=== PATIENT | female | born 1960 | race Caucasian/White ===

== ENCOUNTER 2017-07-04 15:33 | Inpatient (IN) | payer MEDICARE ==
[~2017-07-04] VITALS: Ht 177.8 cm; Wt 121.0 kg
--- NOTE | ~2017-07-04 | HP ---
PATIENT'S NAME: AKILAH MALIK [facility] AGE: 56 Y [address] ROOM: [place] [address] LOCATION: GICU ADMIT DATE: 07/04/2017 History & Physical DISCHARGE DATE: FAMILY PHYSICIAN: PHYSICIAN, UNKNOWN ATTENDING PHYSICIAN: JESSICA SERNA DATE OF SERVICE: CHIEF COMPLAINT: Acute encephalopathy, catatonia. HISTORY OF PRESENT ILLNESS: This is a 56-year-old female, transferred here from [facility] for evaluation of acute encephalopathy. The patient is known to have history of extensive psychiatric illnesses on multiple antipsychotic medications and presented to the emergency room yesterday lethargic with altered mental status. The patient apparently was admitted to their facility three days prior to her presentation last night and was hospitalized for 2 days for management of acute gastroenteritis type symptom. The patient was discharged on Tuesday morning, feeling well, but the very next day she was noted to be more and more lethargic, appearing to be how she looks right now. During my evaluation today, the patient is not following my command, blinks her eyes a few times, but other than that does not move any of her extremities. They did have a CT of her head done, which was negative and appears that this is related to side-effect from her psych medications and I think that could be despite her known noncompliance from her medications, she might have gotten more from medications regularly during her hospitalization, which is quite a few in number which might have cause the side-effect. The patient is hemodynamically stable, afebrile, and resting in bed with minimal responses. PAST MEDICAL HISTORY: 1. Bipolar disorder. 2. Schizophrenia. 3. Depression. 4. Hypertension. 5. COPD. SOCIAL HISTORY: The patient lives at home with . She have significant smoking history, but apparently quit about a week ago. Denies any alcohol or drug use. FAMILY HISTORY: The patient has a history of heart disease in her dad. REVIEW OF SYSTEMS: PATIENT'S NAME: AKILAH MALIK [facility] AGE: 56 Y [address] ROOM: [place] [address] LOCATION: GICU ADMIT DATE: 07/04/2017 History & Physical DISCHARGE DATE: FAMILY PHYSICIAN: PHYSICIAN, UNKNOWN ATTENDING PHYSICIAN: JESSICA SERNA Not able to conduct a full review of systems due to the patient's mental status. PHYSICAL EXAMINATION: VITAL SIGNS: Afebrile. Heart rate 90s, blood pressure 170/90, respiratory rate 18, saturating 100% on room air. GENERAL: The patient is awake, alert, and oriented x1, blinks eyes to sternal rub, but otherwise does not follow command at all. HEENT: Pupils equal and reactive to light. No scleral icterus, conjunctival pallor noted. CHEST: Clear to auscultation bilaterally. HEART: S1 and S2. Regular rate and rhythm. ABDOMEN: Soft, nontender, and nondistended. EXTREMITIES: Without edema. MUSCULOSKELETAL: No joint effusion, redness, or edema noted. NEURO: The patient unresponsive except for sternal rub, but no obvious focal neurological deficits appreciated. SKIN: Without rash or lesions noted. ASSESSMENT AND PLAN: 1. Catatonia. This appears to be related to side-effects of her multiple psychiatric medications including Invega, Seroquel, trazodone, bupropion, amitriptyline in combination or any of these can cause this. At this point, we will hold all antipsychotic medications and treat this as catatonia with Lorazepam 1 mg IV q.6 hours and monitor progress. We will transfer the patient to ICU level of care. I spoke to the psychiatrist, Dr. Cage and he is coming to see the patient as well in the acute setting and her medications going forward. 2. Acute encephalopathy related to problem #1. Management as described above. 3. Schizophrenia. Management as above. 4. Essential hypertension. Hold p.o. medications until her mental status improves and manage with IV medications for as needed. 5. Morbid obesity. 6. Tobacco dependence. 7. Chronic obstructive pulmonary disease. Continue her p.r.n. nebulizer treatments as needed. 8. Deep vein thrombosis prophylaxis. Use heparin 5000 units t.i.d. Forty five minutes of critical time spent for managing the patient. JESSICA SERNA MD PATIENT'S NAME: JOSE MALIKArmando Mcduffie [facility] AGE: 56 Y [address] ROOM: [address] [address] LOCATION: [facility] ADMIT DATE: 07/04/2017 History & Physical DISCHARGE DATE: FAMILY PHYSICIAN: PHYSICIAN, UNKNOWN ATTENDING PHYSICIAN: JESSICA SERNA /[id number] D: [id number] T: [id number] HISTORY & PHYSICAL
--- NOTE | ~2017-07-04 | DS ---
PATIENT'S NAME: AKILAH MALIK [facility] AGE: 56 Y [address] ROOM: [address] [address] LOCATION: GPCU ADMIT DATE: 07/04/2017 Discharge Summary DISCHARGE DATE: 07/08/2017 FAMILY PHYSICIAN: Jasper Siu MD ATTENDING PHYSICIAN: Macario Simon FINAL DIAGNOSES: 1. Catatonia. 2. Anxiety disorder. 3. Bipolar disorder. 4. Essential hypertension. Please see the history and physical dictated by Dr. Simon for details of admission. In short, the patient presented in a catatonic state that was felt to be related to her psychogenic medications. She was admitted into the intensive care unit. LABORATORY DATA: On admission, sodium 136, potassium 3.6, chloride 98, CO2 32, BUN 8, creatinine 0.5, alkaline phosphatase 68, AST 33, and ALT 44; at discharge, sodium 136, potassium 4.5, chloride 99, CO2 31, BUN 8, creatinine 0.5, and magnesium 2.1. White blood cell count on admission was 12.8, hemoglobin 14.5, hematocrit 41.5, platelet count 253. Discharge white blood cell count 7.2, hemoglobin 12.6. RADIOLOGY DATA: Chest x-ray on admission for cough, it was normal chest x- ray. HOSPITAL COURSE: The patient was admitted into the intensive care unit and was in catatonic state. She was started on IV to lorazepam 1 mg every 6 hours. Psychiatry was asked to come see her. She was given IV labetalol to help control her blood pressure. There was a bedside speech evaluation. Dr. Cage did feel that we should hold the medications. She did have evidence of a cough, so chest x-ray was done to make sure that she had not had aspirated and developed pneumonia. Speech Therapy was asked to see her as well as PT/OT. She is very tearful at times during the hospital stay, but each day she got more interactive. We were able to advance to have a regular diet. She was moved out of the intensive care unit. Her Ativan was changed to adjust as needed. Dr. Cage did see her again and restarted her Wellbutrin and Seroquel. It was felt that she was stable for discharge on [place] [address]. DISCHARGE INSTRUCTIONS: She is to follow up with Sumi Chiu as already scheduled, Dr. Benz in 5-7 days. MEDICATIONS: 1. Advair 250/50 one inhalation daily. PATIENT'S NAME: AKILAH MALIK [facility] AGE: 56 Y [address] ROOM: [place] [address] LOCATION: GPCU ADMIT DATE: 07/04/2017 Discharge Summary DISCHARGE DATE: 07/08/2017 FAMILY PHYSICIAN: Jasper Sui MD ATTENDING PHYSICIAN: Macario Simon 2. Aspirin 81 mg daily. 3. B complex vitamin daily. 4. Combivent 1 inhalation daily. 5. Ibuprofen 800 mg 3 times daily. Lisinopril/HCT 20/25 one tablet daily. 6. Claritin 10 mg daily. 7. Multivitamin daily. 8. Calcium with D 3 daily. 9. Ascorbic acid 1000 mg daily. 10. Vitamin D 5000 units daily. 11. Wellbutrin XL 150 mg daily. 12. Seroquel 50 mg at bedtime. 13. ProAir 2 puffs twice daily as needed for cough. 14. She is also sent with a script for wheeled walker. OVERALL PROGNOSIS: At discharge is fair. NARCISO WARE MD LAW/modl /[id number] CC: Sumi Chiu, SHIRLEY BENZ MD (ALMA) d: 07/09/17 0302 t: 07/18/17 1426, DISCHARGE SUMMARY
--- NOTE | ~2017-07-04 | CON ---
PATIENT'S NAME: AKILAH MALIK [facility] AGE: 56 Y [address] ROOM: [place] [address] LOCATION: GPCU ADMIT DATE: 07/04/2017 Consultation DISCHARGE DATE: FAMILY PHYSICIAN: Jasper Siu MD ATTENDING PHYSICIAN: JESSICA SERNA DATE OF CONSULTATION: 07/07/2017 REFERRING PHYSICIAN: Jase Adame MD CONSULTATION/PROGRESS NOTE DATA: The patient was seen today on a one-to-one and the case was discussed with the nurse for vital signs and collateral information. I also discussed the case with Dr. Ghanshyam Kim, who called for the consultation. CHIEF COMPLAINT: Recent catatonia, physical health. INTERVAL HISTORY: The patient doing much better after the episode of catatonia. She has not regressed to catatonia again. There were exhibited issues with depression and anxiety and they were wondering about restarting medications and safety for discharge or transfer to the Psychiatric Facility, so a psychiatric consultation was requested. I came to [facility], reviewed the electronic records, the paper records, talked to the nurse for collateral information, and with the patient on a [id number] in the company of her . The patient states she is doing much better. Denies any current major issues with depression, anxiety, psychosis, ginna, or hypomania. MENTAL STATUS EXAMINATION: lady, cooperative, good hygiene, and good eye contact. No psychomotor agitation or retardation. Speech is normal in volume, tone, and production. Mood is described as just mildly anxious. Affect is broad and appropriate to thought content. Thought content is relevant by the patient denying suicidal or homicidal ideations, denying current auditory or visual hallucinations. No delusional thoughts. Thought process is coherent, congruent. No loosening of association. Insight and judgment seem to be fair. Memory is within normal limits. She is alert and oriented. Intelligence is average. DIAGNOSES: At the time of the evaluation: 1. Recent catatonia, now in remission. 2. Bipolar disorder by history. PATIENT'S NAME: AKILAH MALIK [facility] AGE: 56 Y [address] ROOM: [place] [address] LOCATION: GPCU ADMIT DATE: 07/04/2017 Consultation DISCHARGE DATE: FAMILY PHYSICIAN: Jasper Siu MD ATTENDING PHYSICIAN: JESSICA SERNA RECOMMENDATIONS: After talking about the risks, benefits, and side effects, the patient consented for restarting bupropion XL 150 mg every day and Seroquel 50 mg every night, and the rest should be addressed by her psychiatric provider. In the meantime, the patient can be discharged when medically cleared. JASE ADAME MD HG/modl /[id number] d: 07/07/172119 t: 07/11/17 0729, CONSULTATION REPORT
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
[2017-07-04] MEDS ORDERED: ADVAIR 250-501 EACH INH (17:59)
[2017-07-04] MEDS ORDERED: FLAGYL500 MG PO (17:59)
[2017-07-04] MEDS ORDERED: ELAVIL50 MG PO (18:00)
[2017-07-04] MEDS ORDERED: ASPIRIN LO-DOSE81 MG PO (18:00)
[2017-07-04] MEDS ORDERED: SUPER B WITH V1 EACH PO (18:00)
[2017-07-04] MEDS ORDERED: KLONOPIN1 MG PO (18:01)
[2017-07-04] MEDS ORDERED: BUPROPION HCL150 M1 PO (18:01)
[2017-07-04] MEDS ORDERED: ADVIL200 MG PO (18:02)
[2017-07-04] MEDS ORDERED: COMBIVENT RESPIM4 GM INH (18:02)
[2017-07-04] MEDS ORDERED: CLARITIN10 MG PO (18:03)
[2017-07-04] MEDS ORDERED: LISINOPRIL-HCT1 EAC2 PO (18:03)
[2017-07-04] MEDS ORDERED: MULTI-DAY VITA1 EACH PO (18:03)
[2017-07-04] MEDS ORDERED: OMEGA-31000 MG PO (18:04)
[2017-07-04] MEDS ORDERED: DESYREL100 MG PO (18:05)
[2017-07-04] MEDS ORDERED: SEROQUEL XR150 MG PO (18:05)
[2017-07-04] MEDS ORDERED: POTASSIUM99 MG PO (18:06)
[2017-07-04] MEDS ORDERED: VIIBRYD40 MG PO (18:08)
[2017-07-04] MEDS ORDERED: [UNRECOGNIZED DRUG - CODE] PO (18:08)
[2017-07-04] MEDS ORDERED: VITAMIN D35000 UNI1 PO (18:09)
[2017-07-04] MEDS ORDERED: VITAMIN C1000 MG PO (18:09)
[2017-07-04] MEDS ORDERED: ZINC30 M1 PO (18:10)
[2017-07-04] MEDS ORDERED: TYLENOL325 MG PO (18:11)
[2017-07-04] MEDS ORDERED: INVEGA6 MG PO (18:12)
[2017-07-04] MEDS ORDERED: CIPRO500 MG PO (18:13)
[2017-07-04] MEDS ORDERED: [UNRECOGNIZED DRUG - OTHER] PO (18:14)
[2017-07-04 18:59] LABS: HEMATOCRIT 41.5 % (33.0-46.0); HEMOGLOBIN 14.5 g/dL (10.0-15.0); MCH 31.9 pg (27.0-34.0); MCHC 34.9 gm/dL (32.0-36.5); MCV 91.4 fl (83.0-98.0); MPV 7.9 fl (9.4-12.4); PLATELET COUNT 253 K/uL (150-450); RBC 4.54 M/uL (3.50-5.50); RDW-CV 12.7 % (11.9-14.6); WBC 12.8 K/uL (4.0-11.0)
[2017-07-04 19:17] LABS: ALBUMIN 2.6 gm/dL (3.5-5.0); ALK PHOS 68 IU/L (33-138); ALT 44 IU/L (12-78); ANION GAP 9.6 (10.0-19.0); AST 33 IU/L (10-40); BLOOD UREA NITROGEN 8 mg/dL (6-24); CALCIUM 8.4 mg/dL (8.5-10.5); CHLORIDE 98 mMol/L (96-110); CO2 32 mMol/L (22-32); CREATININE 0.5 mg/dL (0.5-1.1); POTASSIUM 3.6 mMol/L (3.7-5.1); SODIUM 136 mMol/L (135-145); TOTAL BILIRUBIN 0.4 mg/dL (0.0-1.5); TOTAL PROTEIN 6.3 g/dL (6.0-8.4)
--- NOTE | 2017-07-04 19:48 | NUR ---
RECIEVED ORDERS TO TRANSFER PATIENT TO ICU. REPORT GIVEN TO ROSMERY GARCIA. PATIENT WAS TRANSFER TO ICU AT 1935.
--- NOTE | 2017-07-04 19:49 | NUR ---
PATIENT WAS ADMITTED FROM [facility]. AT TIME OF ARRIVAL PATIENT WAS OBTUNDED AND DID NOT FOLLOW COMMANDS BUT VERBALIZE PAIN WITH STERNAL RUB. PATIENTS EYES WERE OPEN BUT DID NOT TRACK PEOPLE IN ROOM. WHEN MOVING PATIENT ARMS AND LEGS SHE DID NOT USE HER MUSCLE STRENGTH AT ALL. DR. BLANDON WAS NOTIFIED.
[2017-07-04 19:58] LABS: LYMPHOCYTE # 1.4 K/uL (0.8-4.0); LYMPHOCYTE % 11 %; MONOCYTE # 1.4 K/uL (0.0-1.0); SEGMENTED NEUTROPHIL % 78 %
--- NOTE | 2017-07-05 04:31 | NUR ---
Significant Event: Patient AOx3, flat affect. Follows commands, weakness noted. SR, hypertensive. Labetolol given x2. 3L/NC, lung sounds clear and diminished. Bowel sounds hypoactive, no bm this shift. Smyth placed this shift, adequate UOP. Skin breakdown noted. Afebrile. PIVx1 Sl'd. Follow up: Transfer
[2017-07-05 05:33] LABS: HEMATOCRIT 38.8 % (33.0-46.0); HEMOGLOBIN 13.6 g/dL (10.0-15.0); MCH 32.5 pg (27.0-34.0); MCHC 35.1 gm/dL (32.0-36.5); MCV 92.6 fl (83.0-98.0); MPV 7.9 fl (9.4-12.4); PLATELET COUNT 245 K/uL (150-450); RBC 4.19 M/uL (3.50-5.50); RDW-CV 12.6 % (11.9-14.6); WBC 10.7 K/uL (4.0-11.0)
[2017-07-05 06:24] LABS: ABSOLUTE NEUTROPHIL CT (ANC) 7.4 K/uL (1.8-7.8); BANDED NEUTROPHIL # 1.2 K/uL (0.0-0.1); BANDED NEUTROPHILS % 11 %; LYMPHOCYTE # 2.5 K/uL (0.8-4.0); LYMPHOCYTE % 21 %; MONOCYTE # 0.7 K/uL (0.0-1.0); SEGMENTED NEUTROPHIL # 6.2 K/uL (1.8-7.8); SEGMENTED NEUTROPHIL % 58 %
[2017-07-05 06:29] LABS: ALBUMIN 2.3 gm/dL (3.5-5.0); ALK PHOS 62 IU/L (33-138); ALT 40 IU/L (12-78); BLOOD UREA NITROGEN 7 mg/dL (6-24); CALCIUM 8.2 mg/dL (8.5-10.5); CHLORIDE 99 mMol/L (96-110); CREATININE 0.4 mg/dL (0.5-1.1); SODIUM 137 mMol/L (135-145); TOTAL PROTEIN 5.8 g/dL (6.0-8.4)
[2017-07-05 06:32] LABS: ANION GAP 7.4 (10.0-19.0); AST 42 IU/L (10-40); CO2 35 mMol/L (22-32); MAGNESIUM 2.1 mg/dL (1.8-2.6); POTASSIUM 4.4 mMol/L (3.7-5.1); TOTAL BILIRUBIN 0.5 mg/dL (0.0-1.5)
--- NOTE | 2017-07-05 10:54 | NUR ---
PT SCREENED D/T (+) MST. PT DENIES WT LOSS. APPETITE IS GOOD. WT IN OBESE RANGE. NO NUTRITION-RELATED DIAGNOSIS IDENTIFIED. WILL ASSIST NEEDED.
--- NOTE | 2017-07-05 14:21 | NUR ---
Introduced self and role of care managemen to patient and her daughter. She states that she lives in [place] with her . She states that she is able to do all her own ADL's. Her daughter states that she and patients do assist if needed. They plan on her returning home on discharge. She denies any needs at this time. Will continue to follow.
--- NOTE | 2017-07-05 16:34 | NUR ---
Significant Event: Patient is A/O x3, agitated, crying at times, mumbles. Tremors noted in upper body. Equal but weak strength bilaterally. PERRLA. Patient refused many cares. SR-ST with HRs 80s-100s. Afibrile. Lung sounds clear and dim, occasionally slightly course in uppers, clears with productive cough, white, thick sputum. 1L O2 while resting to keep SATs >90%. Diet increased as tolerated, bedside swallow passed, regular diet, 2 moderate BM. Smyth intact, adequate UOP, dark yellow. Up to chair, heavy 2 assist. Follow up: Status change.
[2017-07-06 05:00] LABS: BASOPHIL % 0.3 %; EOSINOPHIL # 0.1 K/uL (0.0-0.5); EOSINOPHIL % 1.2 %; HEMATOCRIT 38.6 % (33.0-46.0); HEMOGLOBIN 13.4 g/dL (10.0-15.0); IMMATURE GRANULOCYTE # 0.1 K/uL (0.0-0.3); IMMATURE GRANULOCYTE % 1.2 %; LYMPHOCYTE # 2.6 K/uL (0.8-4.0); LYMPHOCYTE % 24.5 %; MCH 32.3 pg (27.0-34.0); MCHC 34.7 gm/dL (32.0-36.5); MONOCYTE # 1.1 K/uL (0.0-1.0); MONOCYTE % 10.5 %; NEUTROPHIL # (ANC) 6.5 K/uL (1.8-7.8); NEUTROPHIL % 62.3 %; NRBC % 0 /100WBC (0-0.00); PLATELET COUNT 234 K/uL (150-450); RBC 4.15 M/uL (3.50-5.50); RDW-CV 12.7 % (11.9-14.6); WBC 10.5 K/uL (4.0-11.0)
[2017-07-06 05:15] LABS: ALBUMIN 2.3 gm/dL (3.5-5.0); ALK PHOS 57 IU/L (33-138); ALT 32 IU/L (12-78); ANION GAP 10.5 (10.0-19.0); AST 18 IU/L (10-40); BLOOD UREA NITROGEN 6 mg/dL (6-24); CALCIUM 8.2 mg/dL (8.5-10.5); CHLORIDE 96 mMol/L (96-110); CO2 33 mMol/L (22-32); CREATININE 0.6 mg/dL (0.5-1.1); MAGNESIUM 1.9 mg/dL (1.8-2.6); POTASSIUM 3.5 mMol/L (3.7-5.1); SODIUM 136 mMol/L (135-145); TOTAL BILIRUBIN 0.6 mg/dL (0.0-1.5); TOTAL PROTEIN 5.6 g/dL (6.0-8.4)
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
--- NOTE | 2017-07-06 13:20 | NUR ---
SIGNIFICANT EVENT: PATIENT ALERT, ORIENTED X3. OPENS EYES SPONT. AND TO VOICE. PUPILS EQUAL AND REACTIVE. SPEECH IS CLEAR. DENIES ANY HEADACHES, NUMBNESS, TINGLING, OR PAIN. PATIENT MOVES ALL 4 EXTREMITIES SPONT. AND TO VOICE. EQUAL STRENGTH THROUGHOUT. AMBULATES WITH GAITBELT, WALKER, AND 2 PERSON ASSISTANCE. PATIENT IS TEARFUL AT TIMES REGARDING HOME ENVIORMENT; CARE MANAGEMENT AND DEPARTMENT OF HEALTH AND HUMAN RESOURCES HAS BEEN NOTIFIED AND MADE AWARE OF PATIENT'S REPORTS. PATIENT HAS BEEN INSINUS RHYTHM, TACHY AT TIMES INTO 110S. PULSES PALPABLE THROUGHOUT. HYPERTENSIVE AT TIMES, SBP 140-160S, MAP>65. LABETALOL AND HYDRALAZINE AVAILABLE FOR SBP>170. AFEBRILE. PATIENT WEANED TO ROOM AIR, SATS LOW 90S. SPONT, PRODUCTIVE COUGH. DEEP BREATHING, TURN, AND COUGH ENCOURAGED. NOWEL SOUNDS ACTIVE, 1 BM TODAY. REGULAR DIET, TOLERATING WELL. HARRY INTACT, ADEQUATE URINE UOUTPUT. NO NEW SKIN ISSUES NOTED. REPOSITIONED AT LEAST EVERY 2 HOURS. L) PIV INTACT, NO COMPLICATIONS. SALINE LOCKED. FOLLOWW UP: CONT TO MONITOR. MSU STATUS
--- NOTE | 2017-07-07 01:47 | NUR ---
ALERT/ORIENTED X3. TEARFUL ABOUT HOME SITUATION. VSS. PIV'S SL'D. NO C/O PAIN. UP WITH 2 ASSIST, GB, WALKER. TRANSFERED TO PCU AT 2300
[2017-07-07 04:05] LABS: ALBUMIN 2.6 gm/dL (3.5-5.0); BLOOD UREA NITROGEN 6 mg/dL (6-24); CALCIUM 8.5 mg/dL (8.5-10.5); CHLORIDE 95 mMol/L (96-110); CREATININE 0.5 mg/dL (0.5-1.1); MAGNESIUM 2.2 mg/dL (1.8-2.6); PHOSPHORUS 3.8 mg/dL (2.5-4.9); POTASSIUM 3.3 mMol/L (3.7-5.1); SODIUM 135 mMol/L (135-145)
[2017-07-07 04:08] LABS: ANION GAP 8.3 (10.0-19.0); CO2 35 mMol/L (22-32)
--- NOTE | 2017-07-07 05:16 | NUR ---
Significant Event:A/Ox3. VSS on RA, increased to 2L/NC at night per hospital stay. Transfers 1-2 assist with walker/GB. BM x2 noted by patient. Smyth to DD with 2700 UOP will DC prior to shift change. Daughter at the bedside. K+ 3.3 notified and replaced with 40meq PO KCL. Follow up:Continue to monitor. Make MSU status.
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
--- NOTE | 2017-07-07 15:45 | NUR ---
Significant Event: A/O. VSS on RA. Denies pain. Up with 1 assist and a walker. Family at bedside. IV ativan changed to PRN and can be given PO. Wellbutrin and seroquel started by psych. From psych standpoint patient may dismiss. Patient expressed interest in following up with Dr Kim as an outpatient explained to patient that she only sees hospital patients, advised patient to talk to Dr Kim about choosing a dr to follow up with. Gillian zhao today. Follow up: Patient eager to dismiss to home.
[2017-07-08 03:33] LABS: BASOPHIL # 0.1 K/uL (0.0-0.2); BASOPHIL % 0.7 %; EOSINOPHIL # 0.2 K/uL (0.0-0.5); EOSINOPHIL % 2.1 %; HEMOGLOBIN 12.6 g/dL (10.0-15.0); IMMATURE GRANULOCYTE # 0.1 K/uL (0.0-0.3); IMMATURE GRANULOCYTE % 0.8 %; LYMPHOCYTE # 2.9 K/uL (0.8-4.0); LYMPHOCYTE % 40.3 %; MCH 31.4 pg (27.0-34.0); MCHC 34.1 gm/dL (32.0-36.5); MCV 92.3 fl (83.0-98.0); MONOCYTE # 0.8 K/uL (0.0-1.0); MONOCYTE % 11.4 %; NEUTROPHIL # (ANC) 3.2 K/uL (1.8-7.8); NEUTROPHIL % 44.7 %; NRBC % 0 /100WBC (0-0.00); RBC 4.01 M/uL (3.50-5.50); RDW-CV 12.7 % (11.9-14.6); WBC 7.2 K/uL (4.0-11.0)
[2017-07-08 03:40] LABS: PLATELET COUNT 302 K/uL (150-450)
[2017-07-08 03:50] LABS: ALBUMIN 2.5 gm/dL (3.5-5.0); ALK PHOS 57 IU/L (33-138); ALT 36 IU/L (12-78); ANION GAP 10.5 (10.0-19.0); AST 24 IU/L (10-40); BLOOD UREA NITROGEN 8 mg/dL (6-24); CALCIUM 8.6 mg/dL (8.5-10.5); CHLORIDE 99 mMol/L (96-110); CO2 31 mMol/L (22-32); CREATININE 0.5 mg/dL (0.5-1.1); MAGNESIUM 2.1 mg/dL (1.8-2.6); POTASSIUM 4.5 mMol/L (3.7-5.1); SODIUM 136 mMol/L (135-145); TOTAL BILIRUBIN 0.3 mg/dL (0.0-1.5)
--- NOTE | 2017-07-08 07:23 | NUR ---
Significant Event: Patient alert and oriented x3. Flat affect. Vital signs stable. On 1-2L O2 with sleep. Complained of knee pain and heartburn at end of shift. Ativan given x1 for anxiety. continues at bedside. Up with 1 assist, gaitbelt, and walker. Calm and cooperative with all cares. Follow up: Home today?
[2017-07-08] MEDS ORDERED: WELLBUTRIN XL150 M1 PO (14:30)
[2017-07-08] MEDS ORDERED: SEROQUEL50 MG PO (14:32)
[2017-07-08] MEDS ORDERED: PROAIR HFA8.5 GM (15:46)
--- NOTE | 2017-07-08 17:06 | NUR ---
Significant Event: ALERT & ORIENTED TO QUESTIONS BUT MAKES CONFUSED STATEMENTS AT TIMES. VSS, AFEBRILE, SATS LOW 90'S ON ROOM AIR. DISCHARGE INSTRUCTIONS, MEDICATIONS, AND APPOINMENTS DISCUSSED WITH PT AND SPOUSE, VERBALIZED UNDERSTANDING. REINFORCED IMPORTANCE OF MED COMPLIANCE. INDIVIDUAL SCRIPTS FOR WALKER AND PROAIR GIVEN. BELONGINGS WITH PATIENT, ESCORTED TO VEHICLE, RELATIVE TO TRANSPORT TO HOME.
[2017-07-13] MEDS ORDERED: MYCOSTATIN OINT30 GM TOP (04:31)
[2017-07-13] MEDS ORDERED: PROTONIX40 MG PO (04:32)
[2017-07-13] MEDS ORDERED: DULERA 200 MCG/51 EA INH (04:34)
== END 2017-07-08 16:00 | disposition disaster alternative care site (69) | DRG 884 ==
LOC: GPCU 15:33 → GICU 15:34 → GPCU 07-06 22:41
PROVIDERS: Internal Medicine; ADMIT Internal Medicine
DX: F06.1 Catatonic disorder due to known physiological condition (principal); G93.40 Encephalopathy, unspecified; F41.9 Anxiety disorder, unspecified; F31.9 Bipolar disorder, unspecified; I10 Essential (primary) hypertension; J44.9 Chronic obstructive pulmonary disease, unspecified; E66.01 Morbid (severe) obesity due to excess calories; Z68.37 Body mass index [BMI] 37.0-37.9, adult; Z87.891 Personal history of nicotine dependence; Z79.82 Long term (current) use of aspirin; F19.99 Other psychoactive substance use, unspecified with unspecified psychoactive substance-induced disorder
CPT/HCPCS: J0360; J1644; J2060; J7030

== ENCOUNTER 2017-07-09 20:37 | Inpatient (IN) | payer MEDICARE ==
[~2017-07-09] VITALS: Ht 177.8 cm; Wt 144.7 kg
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
--- NOTE | ~2017-07-09 | DS ---
PATIENT'S NAME: AKILAH MALIK [facility] AGE: 56 Y [address] ROOM: [place] [address] [place] [facility] [place]MIT DATE: 07/09/2017 Discharge Summary DISCHARGE DATE: 07/12/2017 FAMILY PHYSICIAN: Physician, Unknown ATTENDING PHYSICIAN: Bob Marrero PRINCIPAL DIAGNOSES: 1. Catatonic state. 2. Bipolar disorder with schizophrenia. 3. Suicidal ideation. 4. Essential hypertension. HOSPITAL COURSE: This is a 56-year-old female with known history of complicated bipolar disorder, depression, and recent admission for a catatonic state, who returns to the hospital with unresponsiveness. The patient was treated for catatonia similar to her recent previous admission, and was re- evaluated by Psychiatry with regard to helping manage her psychiatric disorders long-term. The patient responded to treatment with IV lorazepam appropriately. The patient, upon her hospital stay from her altered mental status point of view, improved significantly. The patient today reportedly described suicidal ideations stemming from stressors at home complicated by her overall psych history. At this point, the patient is to be transferred for inpatient stay at [facility] to try and further address some psychiatric issues and an inpatient setting. PHYSICAL EXAMINATION: GENERAL: On exam, the patient has a flat affect, but awake and alert and oriented x3, in no acute distress. CHEST: Clear to auscultation bilaterally. HEART: S1 and S2, regular rate and rhythm. ABDOMEN: Soft, nontender, and nondistended. NEUROLOGICAL: Grossly nonfocal. MEDICATIONS: Per [facility]. DISPOSITION: Transfer to [facility] for an inpatient stay. Less than 30 minutes were spent in discharge planning and facilitating appropriately. JESSICA SERNA MD BG/modl PATIENT'S NAME: AKILAH MALIK [facility] AGE: 56 Y [address] ROOM: [place] [address] [place] [facility] [place] ADMIT DATE: 07/09/2017 Discharge Summary DISCHARGE DATE: 07/12/2017 FAMILY PHYSICIAN: Physician, Unknown ATTENDING PHYSICIAN: Bob Marrero /[id number] d: 07/13/17 0436 t: 07/17/17 1556, DISCHARGE SUMMARY
[~2017-07-09 20:37] MED LIST: ADVAIR 250-501 EACH INH; ADVIL200 MG PO; ASPIRIN LO-DOSE81 MG PO; BUPROPION HCL150 M1 PO; CIPRO500 MG PO; CLARITIN10 MG PO; COMBIVENT RESPIM4 GM INH; DESYREL100 MG PO; ELAVIL50 MG PO; FLAGYL500 MG PO; INVEGA6 MG PO; KLONOPIN1 MG PO; LISINOPRIL-HCT1 EAC2 PO; MULTI-DAY VITA1 EACH PO; OMEGA-31000 MG PO; POTASSIUM99 MG PO; PROAIR HFA8.5 GM; SEROQUEL XR150 MG PO; SEROQUEL50 MG PO; SUPER B WITH V1 EACH PO; TYLENOL325 MG PO; VIIBRYD40 MG PO; VITAMIN C1000 MG PO; VITAMIN D35000 UNI1 PO; WELLBUTRIN XL150 M1 PO; ZINC30 M1 PO; [UNRECOGNIZED DRUG - CODE] PO; [UNRECOGNIZED DRUG - OTHER] PO
[2017-07-10 00:08] LABS: BASOPHIL % 0.3 %; EOSINOPHIL % 0.2 %; HEMATOCRIT 41.3 % (33.0-46.0); HEMOGLOBIN 14.5 g/dL (10.0-15.0); IMMATURE GRANULOCYTE # 0.1 K/uL (0.0-0.3); IMMATURE GRANULOCYTE % 0.7 %; LYMPHOCYTE # 2.7 K/uL (0.8-4.0); LYMPHOCYTE % 21.7 %; MCH 32.3 pg (27.0-34.0); MCHC 35.1 gm/dL (32.0-36.5); MONOCYTE # 0.9 K/uL (0.0-1.0); MONOCYTE % 7.6 %; MPV 8.3 fl (9.4-12.4); NEUTROPHIL # (ANC) 8.5 K/uL (1.8-7.8); NEUTROPHIL % 69.5 %; NRBC % 0 /100WBC (0-0.00); PLATELET COUNT 335 K/uL (150-450); RBC 4.49 M/uL (3.50-5.50); RDW-CV 12.8 % (11.9-14.6); WBC 12.3 K/uL (4.0-11.0)
[2017-07-10 00:17] LABS: INR - (THERAPEUTIC) 1.01 (0.92-1.07); PROTIME 10.6 SECONDS (9.8-11.4); PTT 25 SECONDS (25-32)
[2017-07-10 00:28] LABS: ALBUMIN 3.1 gm/dL (3.5-5.0); ALK PHOS 76 IU/L (33-138); ALT 109 IU/L (12-78); ANION GAP 13.6 (10.0-19.0); AST 67 IU/L (10-40); BLOOD UREA NITROGEN 10 mg/dL (6-24); CALCIUM 8.9 mg/dL (8.5-10.5); CHLORIDE 96 mMol/L (96-110); CO2 28 mMol/L (22-32); CREATININE 0.6 mg/dL (0.5-1.1); POTASSIUM 3.6 mMol/L (3.7-5.1); SODIUM 134 mMol/L (135-145); TOTAL PROTEIN 6.9 g/dL (6.0-8.4)
[2017-07-10 00:37] LABS: TOTAL BILIRUBIN 0.5 mg/dL (0.0-1.5)
[2017-07-10] MEDS ORDERED: IMODIUM2 MG PO (01:04)
[2017-07-10] MEDS ORDERED: FISH OIL 1,0001 EACH PO (01:06)
[2017-07-10] MEDS ORDERED: REFRESH PLUS1 EACH OPHTH (01:09)
[2017-07-10] MEDS ORDERED: COMBIVENT RESPIM4 GM INH (01:13)
[2017-07-10] MEDS ORDERED: PRINIVIL (ZESTR20 MG PO (01:15)
[2017-07-10] MEDS ORDERED: HYDRODIURIL25 MG PO (01:15)
[2017-07-10 07:53] LABS: BASOPHIL % 0.2 %; EOSINOPHIL % 0.2 %; HEMATOCRIT 42.3 % (33.0-46.0); HEMOGLOBIN 14.9 g/dL (10.0-15.0); IMMATURE GRANULOCYTE # 0.1 K/uL (0.0-0.3); IMMATURE GRANULOCYTE % 0.7 %; LYMPHOCYTE # 1.6 K/uL (0.8-4.0); LYMPHOCYTE % 12.4 %; MCHC 35.2 gm/dL (32.0-36.5); MCV 90.8 fl (83.0-98.0); MONOCYTE # 1.1 K/uL (0.0-1.0); MONOCYTE % 8.1 %; MPV 8.2 fl (9.4-12.4); NEUTROPHIL # (ANC) 10.3 K/uL (1.8-7.8); NEUTROPHIL % 78.4 %; NRBC % 0 /100WBC (0-0.00); PLATELET COUNT 369 K/uL (150-450); RBC 4.66 M/uL (3.50-5.50); RDW-CV 12.8 % (11.9-14.6); WBC 13.1 K/uL (4.0-11.0)
[2017-07-10 08:10] LABS: ALBUMIN 3.2 gm/dL (3.5-5.0); ALK PHOS 77 IU/L (33-138); ALT 114 IU/L (12-78); ANION GAP 11.7 (10.0-19.0); AST 64 IU/L (10-40); BLOOD UREA NITROGEN 8 mg/dL (6-24); CHLORIDE 97 mMol/L (96-110); CO2 29 mMol/L (22-32); CREATININE 0.5 mg/dL (0.5-1.1); POTASSIUM 3.7 mMol/L (3.7-5.1); SODIUM 134 mMol/L (135-145); TOTAL BILIRUBIN 0.6 mg/dL (0.0-1.5); TOTAL PROTEIN 6.9 g/dL (6.0-8.4)
[2017-07-10 12:40] LABS: BILIRUBIN URINE NEGATIVE (NEGATIVE); BLOOD URINE 10 /UL (NEGATIVE); COLOR URINE YELLOW (YELLOW); GLUCOSE URINE NEGATIVE (NEGATIVE); KETONE URINE 15 mg/dL (NEGATIVE); LEUKOCYTES URINE 25 /UL (NEGATIVE); NITRITE URINE NEGATIVE (NEGATIVE); PROTEIN URINE 30 mg/dL (NEGATIVE); TURBIDITY URINE 1+ (CLEAR); UROBILINOGEN URINE NORMAL (NORMAL)
[2017-07-10 12:41] LABS: AMORPHOUS URINE 1+ (NEGATIVE); BACTERIA URINE FEW (NEGATIVE); RBC URINE 0-2 #/HPF (NEGATIVE)
[2017-07-10 12:45] LABS: BARBITURATE NEGATIVE (NEGATIVE); COCAINE NEGATIVE (NEGATIVE); OPIATES NEGATIVE (NEGATIVE)
[2017-07-10 12:48] LABS: AMPHETAMINE NEGATIVE (NEGATIVE)
[2017-07-10 17:34] LABS: BILIRUBIN URINE NEGATIVE (NEGATIVE); BLOOD URINE 10 /UL (NEGATIVE); COLOR URINE YELLOW (YELLOW); GLUCOSE URINE NEGATIVE (NEGATIVE); KETONE URINE NEGATIVE (NEGATIVE); LEUKOCYTES URINE NEGATIVE /UL (NEGATIVE); NITRITE URINE NEGATIVE (NEGATIVE); PROTEIN URINE 30 mg/dL (NEGATIVE); SPEC GRAVITY URINE 1.015 (1.003-1.035); TURBIDITY URINE CLEAR (CLEAR); UROBILINOGEN URINE 1 mg/dL (NORMAL)
[2017-07-10 18:10] LABS: AMORPHOUS URINE 1+ (NEGATIVE); BACTERIA URINE RARE (NEGATIVE); EPITHELIAL URINE 0-2 #/HPF (NEGATIVE); MUCUS URINE 1+ (NEGATIVE); RBC URINE 0-2 #/HPF (NEGATIVE)
[2017-07-11 04:33] LABS: BASOPHIL # 0.1 K/uL (0.0-0.2); BASOPHIL % 0.5 %; EOSINOPHIL # 0.1 K/uL (0.0-0.5); EOSINOPHIL % 1.1 %; HEMATOCRIT 38.7 % (33.0-46.0); HEMOGLOBIN 13.6 g/dL (10.0-15.0); IMMATURE GRANULOCYTE # 0.1 K/uL (0.0-0.3); IMMATURE GRANULOCYTE % 0.5 %; LYMPHOCYTE # 3.3 K/uL (0.8-4.0); LYMPHOCYTE % 29.5 %; MCH 32.6 pg (27.0-34.0); MCHC 35.1 gm/dL (32.0-36.5); MCV 92.8 fl (83.0-98.0); MONOCYTE # 1.2 K/uL (0.0-1.0); MONOCYTE % 10.5 %; MPV 8.5 fl (9.4-12.4); NEUTROPHIL # (ANC) 6.4 K/uL (1.8-7.8); NEUTROPHIL % 57.9 %; NRBC % 0 /100WBC (0-0.00); PLATELET COUNT 354 K/uL (150-450); RBC 4.17 M/uL (3.50-5.50); RDW-CV 13.1 % (11.9-14.6)
[2017-07-11 04:58] LABS: ALBUMIN 2.7 gm/dL (3.5-5.0); ANION GAP 9.5 (10.0-19.0); BLOOD UREA NITROGEN 9 mg/dL (6-24); CALCIUM 8.6 mg/dL (8.5-10.5); CHLORIDE 97 mMol/L (96-110); CO2 31 mMol/L (22-32); CREATININE 0.5 mg/dL (0.5-1.1); PHOSPHORUS 3.1 mg/dL (2.5-4.9); POTASSIUM 3.5 mMol/L (3.7-5.1); SODIUM 134 mMol/L (135-145)
[2017-07-13] MEDS ORDERED: MYCOSTATIN OINT30 GM TOP (04:31)
[2017-07-13] MEDS ORDERED: PROTONIX40 MG PO (04:32)
[2017-07-13] MEDS ORDERED: DULERA 200 MCG/51 EA INH (04:34)
== END 2017-07-12 16:30 | DRG 885 ==
LOC: GMSU 20:37
PROVIDERS: Family Medicine; ADMIT Internal Medicine
DX: F31.30 Bipolar disorder, current episode depressed, mild or moderate severity, unspecified (principal); F06.1 Catatonic disorder due to known physiological condition; R45.851 Suicidal ideations; I10 Essential (primary) hypertension; F20.9 Schizophrenia, unspecified; R91.1 Solitary pulmonary nodule; B37.2 Candidiasis of skin and nail; L22 Diaper dermatitis; J44.9 Chronic obstructive pulmonary disease, unspecified
CPT/HCPCS: C9113; G0480; J0360; J2060; J3480; J7042

== ENCOUNTER → 2017-07-12 | Outpatient (CLI) | payer MEDICARE ==
[~2017-07-12] MED LIST changes: +DULERA 200 MCG/51 EA INH; +FISH OIL 1,0001 EACH PO; +HYDRODIURIL25 MG PO; +IMODIUM2 MG PO; +MYCOSTATIN OINT30 GM TOP; +PRINIVIL (ZESTR20 MG PO; +PROTONIX40 MG PO; +REFRESH PLUS1 EACH OPHTH
== END | disposition disaster alternative care site (69) ==
LOC: GAMB 16:33
DX: F41.9 Anxiety disorder, unspecified (principal); F31.9 Bipolar disorder, unspecified; J44.9 Chronic obstructive pulmonary disease, unspecified; F60.1 Schizoid personality disorder; F32.9 Major depressive disorder, single episode, unspecified; Z99.3 Dependence on wheelchair
CPT/HCPCS: A0425; A0428

== ENCOUNTER 2017-07-17 12:26 | Emergency (ER) | payer MEDICARE ==
--- NOTE | ~2017-07-17 | ER ---
PATIENT'S NAME: AKILAH MALIK [facility] AGE: 56 Y [address] ROOM: [place] [address] LOCATION: [facility] ADMIT DATE: 07/17/2017 ER/Outpatient Report DISCHARGE DATE: 07/17/2017 FAMILY PHYSICIAN: Physician, Unknown ATTENDING PHYSICIAN: Katt Marino Time of Arrival: 1230 hours. Time of Evaluation: 1230 hours. CHIEF COMPLAINT: Confusion. HISTORY OF PRESENT ILLNESS: The patient was recently hospitalized for catatonic state. She has history of bipolar depression with schizophrenia. She was hospitalized from 07/09/2017 to 07/12/2017. Then, she did go to [facility] and was admitted there for 24 hours and discharged home. brought her back today with concerns that she has had increased confusion and some mental status changes, been very fatigued, had generalized aches. Patient denies vision changes. reports no change in balance. Patient uses a walker at home. The patient answers some questions appropriately, and other times she does not. She states that she just kind of aches all over and has been very tired. She does state she has no desire to harm herself and no desire to harm others. ALLERGIES: ON HER CHART AND REVIEWED BY ME. MEDICATIONS: On her chart and reviewed by me. PAST MEDICAL HISTORY: COPD, hypertension, bipolar depression with schizophrenia, hypothyroidism. SOCIAL HISTORY: She lives in [place], [place] with her . REVIEW OF SYSTEMS: All negative other than those mentioned in the HPI. PHYSICAL EXAMINATION: VITAL SIGNS: She weighs 115.1 kg, blood pressure is 146/93, pulse is 75, respirations 16, temperature of 98.1 tympanic, O2 saturation is 96% on room air. GENERAL: She is awake, alert, and oriented to person. Answers questions calmly and cooperatively. Eagle Coma Scale is 14. NEUROLOGIC: Pupils are equal and reactive to light. Extraocular movement is PATIENT'S NAME: AKILAH MALIK [facility] AGE: 56 Y [address] ROOM: [place] [address] LOCATION: [facility] ADMIT DATE: 07/17/2017 ER/Outpatient Report DISCHARGE DATE: 07/17/2017 FAMILY PHYSICIAN: Physician, Unknown ATTENDING PHYSICIAN: Katt Marino intact. She does move all extremities. She is able to pivot from the wheelchair to the bed. Her speech is clear. She has strong and equal hand grasp. She moves her lower extremities on command. LUNGS: Her lungs sounds are clear throughout. HEART: Regular rate and rhythm. ABDOMEN: Soft, nondistended. Bowel sounds are present. LABORATORY DATA AND X-RAYS: CBC is within normal limits. Pro-time is 10.5 with an INR of 1. Chem panel: Sodium is 135, potassium is 3.5, and chloride of 95. Her BUN is 11 with creatinine 0.7. Her medical blood alcohol is negative. CPK is 33 with CK-MB is 0.9 and troponin is negative. Tylenol is negative. Salicylates are negative. Free T4 is 1.4 with a TSH is 0.591. Cath urine drug screen was completed, it is negative. EKG shows a sinus rhythm with PVC, PAC. The patient was monitored. Vital signs remained stable. Monitor was sinus rhythm. CT of the head was completed. Radiologist reports no acute findings. [facility] was contacted regarding the patient. Fior at [facility] did talk with Dr. Echavarria. He agrees to have the patient be admitted for further psychiatric care. The patient and her agree with the plan of care. The patient will be transferred to [facility] per private vehicle. IMPRESSION: Depression with schizophrenia. PLAN: The patient will be transferred to [facility] for further inpatient care. DANA COLBERT APRN FOR MD MELISA COSBY/roslyn /[id number] d: 07/17/172047 t: 07/20/17905, OUTPATIENT REPORT
[2017-07-17 13:05] LABS: BASOPHIL % 0.5 %; EOSINOPHIL # 0.1 K/uL (0.0-0.5); EOSINOPHIL % 0.8 %; HEMATOCRIT 41.7 % (33.0-46.0); HEMOGLOBIN 14.4 g/dL (10.0-15.0); IMMATURE GRANULOCYTE % 0.5 %; LYMPHOCYTE # 2.6 K/uL (0.8-4.0); LYMPHOCYTE % 30.8 %; MCH 32.1 pg (27.0-34.0); MCHC 34.5 gm/dL (32.0-36.5); MCV 93.1 fl (83.0-98.0); MONOCYTE % 11.9 %; MPV 8.6 fl (9.4-12.4); NEUTROPHIL # (ANC) 4.7 K/uL (1.8-7.8); NEUTROPHIL % 55.5 %; NRBC % 0 /100WBC (0-0.00); PLATELET COUNT 398 K/uL (150-450); RBC 4.48 M/uL (3.50-5.50); WBC 8.4 K/uL (4.0-11.0)
[2017-07-17 13:13] LABS: PROTIME 10.5 SECONDS (9.8-11.4); PTT 25 SECONDS (25-32)
[2017-07-17 13:29] LABS: ALBUMIN 3.4 gm/dL (3.5-5.0); ALK PHOS 74 IU/L (33-138); ALT 51 IU/L (12-78); ANION GAP 11.5 (10.0-19.0); AST 18 IU/L (10-40); BLOOD UREA NITROGEN 11 mg/dL (6-24); CALCIUM 9.1 mg/dL (8.5-10.5); CHLORIDE 95 mMol/L (96-110); CO2 32 mMol/L (22-32); CREATININE 0.7 mg/dL (0.5-1.1); POTASSIUM 3.5 mEq/L (3.7-5.1); SODIUM 135 mEq/L (135-145); TOTAL BILIRUBIN 0.7 mg/dL (0.0-1.5); TOTAL PROTEIN 6.6 g/dL (6.0-8.4)
[2017-07-17 13:30] LABS: CPK 33 IU/L (21-215)
[2017-07-17 14:08] LABS: BARBITURATE NEGATIVE (NEGATIVE); COCAINE NEGATIVE (NEGATIVE); OPIATES NEGATIVE (NEGATIVE)
[2017-07-17 14:09] LABS: AMPHETAMINE NEGATIVE (NEGATIVE)
== END 2017-07-17 14:53 | disposition disaster alternative care site (69) ==
LOC: GMED 12:26
PROVIDERS: Nurse Practitioner Family
DX: F20.9 Schizophrenia, unspecified (principal); F32.9 Major depressive disorder, single episode, unspecified; J44.9 Chronic obstructive pulmonary disease, unspecified; I10 Essential (primary) hypertension; E03.9 Hypothyroidism, unspecified; Z88.5 Allergy status to narcotic agent; Z88.8 Allergy status to other drugs, medicaments and biological substances; Z79.82 Long term (current) use of aspirin; Z79.899 Other long term (current) drug therapy
CPT/HCPCS: G0480